=== PATIENT | male | born 1960 | race Caucasian/White ===

== ENCOUNTER 2022-01-02 12:15 | Inpatient (IN) ==
--- NOTE | 2021-12-30 15:50 | Anesthesiology Consultation ---
Date of Service December 30, 2021 Assessment & Plan (1) Encounter for pre-operative examination: COVID screening: Per assessment on 12/26: No known COVID-19 positive contacts or current COVID-19 related symptoms. Travel screen negative. At surgeon discretion if preop Covid testing being done. Chart Review Chart Review: Acceptable Risk for Surgery (pending surgeon-ordered preop CXR) and Patient NOT seen in Pre Admission Testing History Surgery Operation Date: 01/02/22 10:15 Proposed Procedures p L2-L5 Decompression and Fusion, Spinal Cord Monitoring - Vinay Preston, Height/Weight Height: 6 ft 1.5 in Weight: 108.862 kg Allergies Allergy/AdvReac Type Severity Reaction Status Date / Time METHYLATE Allergy Mild Rash Uncoded 12/26/21 10:41 Medications Home Medications Medication Instructions Recorded Confirmed Last Taken Lactobacil.acidophilus-Bifido.animalis 1 cap PO QAM 12/26/21 12/26/21 Unknown 5 billion cell sprinkle capsule (Probiotic) atorvastatin 10 mg tablet 10 mg PO 3XWK 12/26/21 12/26/21 Unknown bupropion HCl 200 mg tablet,12 hr 200 mg PO BID 12/26/21 12/26/21 Unknown sustained-release buspirone 7.5 mg tablet 7.5 mg PO BID 12/26/21 12/26/21 Unknown cholecalciferol (vitamin D3) 25 50 mcg PO QAM 12/26/21 12/26/21 Unknown mcg (1,000 unit) tablet (Vitamin D3) cyanocobalamin (vitamin B-12) 500 1,000 - 1,500 mcg sublingual QAM 12/26/21 12/26/21 Unknown mcg sublingual tablet cyclobenzaprine 10 mg tablet 10 mg PO DAILY PRN Pain 12/26/21 12/26/21 Unknown felodipine 5 mg tablet,extended 5 mg PO QAM 12/26/21 12/26/21 Unknown release 24 hr losartan 50 mg tablet 50 mg PO QAM 12/26/21 12/26/21 Unknown omeprazole 40 mg capsule,delayed 40 mg PO QAM 12/26/21 12/26/21 Unknown release Past Medical History Medical History (Updated 12/30/21 @ 15:49 by Esther Mo) Anxiety and depression Arthritis GERD (gastroesophageal reflux disease) Hyperlipidemia Hypertension Sleep apnea CPAP Past Family History Family History (Updated 12/26/21 @ 10:56 by Michell Hatfield RN) Other No family history of adverse response to anesthesia Past Surgical History Surgical History (Updated 12/26/21 @ 10:56 by Michell Hatfield RN) Fatty tumor REMOVED FROM HIP AREA X 2 REMOVED FROM RT SHOULDER H/O excision of ganglion cyst WRIST H/O hernia repair X 3 H/O lumbar discectomy History of appendectomy History of colonoscopy History of esophagogastroduodenoscopy (EGD) History of repair of rotator cuff RT History of tonsillectomy History of tooth extraction Hx of LASIK Social History Smoking Status: Former smoker tobacco type: cigarettes and smokeless tobacco Do You Dip or Chew Tobacco: No (QUIT 10+ YEARS) Smoking End Date: 10 + YEARS Hx Alcohol Use: Yes Alcohol type: beer alcohol intake frequency: a few times a month substance use type: does not use Lab Results Anesthesia Preop Results Results Anesthesia Widget: WBC 5.21 K/ul (4.8-10.8) 12/03/21 Hgb 14.3 g/dl (14.0-18.0) 12/03/21 Hct 40.8 % (40.1-51.0) 12/03/21 Plt 223 K/uL (130-400) 12/03/21 Na 135 mmol/L (136-145) L 12/03/21 K 3.9 mmol/L (3.5-5.1) 12/03/21 Cl 102 mmol/L (98-107) 12/03/21 CO2 24 mmol/L (21-32) 12/03/21 BUN 9 mg/dl (6-23) 12/03/21 Creat 1.04 mg/dl (0.6-1.4) 12/03/21 Glucose Level 96 mg/dl (70-99(Fasting)) 12/03/21 PT 10.5 Seconds (9.0-12.0) 12/03/21 PTT 29.9 Seconds (21.0-31.0) 12/03/21 INR 1.0 (0.9-1.1) 12/03/21 Urine Color Yellow 12/03/21 Urine Appearance Clear (Clear) 12/03/21 Urine pH 7.0 (4.5-7.5) 12/03/21 Urine Specific [place] 1.008 (1.000-1.030) 12/03/21 Urine Protein Negative (Negative) 12/03/21 Urine Glucose (UA) Negative (Negative) 12/03/21 Urine Ketones Negative (Negative) 12/03/21 Urine Blood Negative (Negative) 12/03/21 Urine Nitrite Negative (Negative) 12/03/21 Urine Bilirubin Negative (Negative) 12/03/21 Urine Urobilinogen Negative (Negative) 12/03/21 Urine Leukocyte Esterase Negative (Negative) 12/03/21 Blood Type O Positive 12/03/21 Antibody Screen NEGATIVE 12/03/21 Testing Electrocardiogram Date: 12/03/21 NSR at 93bpm. LAD.
[~2022-01-02 12:15] MED LIST: ACETAMINOPHEN 500 MG TAB PO SCH; CeleBREX 200 MG CAP PO SCH; GABAPENTIN 600 MG DOSE PO SCH; LR 15ML/HR IV SCH; ceFAZolin 2000MG 2,000 MG/15 ML SYR IV SCH
[2022-01-02] MEDS ORDERED: ROCURONIUM BROMIDE 10 MG/ML 5 ML VIAL IV ONE (15:15)
[2022-01-02] MEDS ORDERED: ONDANSETRON INJ 2 MG/ML 2 ML VIAL ONE (15:15)
[2022-01-02] MEDS ORDERED: DEXAMETHASONE SOD INJ 4 MG/ML VIAL ONE (15:15)
[2022-01-02] MEDS ORDERED: PROPOFOL IV EMULSION 10 MG/ML 20 ML VIAL IV ONE (15:15)
[2022-01-02] MEDS ORDERED: LIDOCAINE 2% MPF LOCAL 5 ML VIAL INFIL ONE (15:15)
[2022-01-02] MEDS ORDERED: fentaNYL citrate 100 MCG/2 ML VIAL ONE (15:36)
[2022-01-02] MEDS ORDERED: MIDAZOLAM HCL 1 MG/ML 2ML VIAL ONE (15:36)
--- NOTE | 2022-01-02 15:45 | History & Physical Bridge Note ---
Date of Service January 02, 2022 History & Physical Bridge Note I have examined the patient, reviewed the History & Physical and in the interval since the performance of the History & Physical I have noted the following changes of clinical significance: no changes noted
--- NOTE | 2022-01-02 15:46 | History & Physical Report ---
Date of Service January 02, 2022 Assessment & Plan (1) Neurogenic claudication due to lumbar spinal stenosis: Plan: L2-L5 decompression and fusion History of Present Illness Chief Complaint: Back and bilateral leg pain Primary Care Provider: NO PCP This is a 61-year-old male who presents with chronic persistent back and bilateral leg pain. Failing since course of nonoperative care is here for surgical invention. Allergies Allergy/AdvReac Type Severity Reaction Status Date / Time METHYLATE Allergy Mild Rash Uncoded 01/02/22 12:36 Home Medications Medication Instructions Recorded Confirmed Type Lactobacil.acidophilus-Bifido.animalis 1 cap PO QAM 12/26/21 01/02/22 History 5 billion cell sprinkle capsule (Probiotic) atorvastatin 10 mg tablet 10 mg PO 3XWK 12/26/21 01/02/22 History bupropion HCl 200 mg tablet,12 hr 200 mg PO BID 12/26/21 01/02/22 History sustained-release buspirone 7.5 mg tablet 7.5 mg PO BID 12/26/21 01/02/22 History cholecalciferol (vitamin D3) 25 50 mcg PO QAM 12/26/21 01/02/22 History mcg (1,000 unit) tablet (Vitamin D3) cyanocobalamin (vitamin B-12) 500 1,000 - 1,500 mcg sublingual QAM 12/26/21 01/02/22 History mcg sublingual tablet cyclobenzaprine 10 mg tablet 10 mg PO DAILY PRN Pain 12/26/21 01/02/22 History felodipine 5 mg tablet,extended 5 mg PO QAM 12/26/21 01/02/22 History release 24 hr losartan 50 mg tablet 50 mg PO QAM 12/26/21 01/02/22 History omeprazole 40 mg capsule,delayed 40 mg PO QAM 12/26/21 01/02/22 History release Past Med/Surg History Medical History (Updated 01/02/22 @ 15:45 by Vinay Preston DO) Anxiety and depression Arthritis GERD (gastroesophageal reflux disease) Hyperlipidemia Hypertension Sleep apnea CPAP Surgical History Fatty tumor REMOVED FROM HIP AREA X 2 REMOVED FROM RT SHOULDER H/O excision of ganglion cyst WRIST H/O hernia repair X 3 H/O lumbar discectomy History of appendectomy History of colonoscopy History of esophagogastroduodenoscopy (EGD) History of repair of rotator cuff RT History of tonsillectomy History of tooth extraction Hx of LASIK Family History (Updated 12/26/21 @ 10:56 by Michell Hatfield RN) Other No family history of adverse response to anesthesia Social History Smoking Status: Former smoker Smoking End Date: 10 + YEARS; Second Hand Exposure: No; Do You Dip or Chew Tobacco: No (QUIT 10+ YEARS); Hx Alcohol Use: Yes Alcohol type: beer Preferred Language: Senegalese [employer] Required: No Beliefs That Will Affect Care: None Current Living Situation: Family Current Living Situation Comment: AND SON Feels Safe at Home: Yes Safety Concerns: Feels Safe At This Time Assistive Devices: CPAP and Glasses Physical Exam Physical Exam: Patient is alert and oriented Heart regular in rhythm Lungs clear Results & Data Results & Data ([facility]) Vital Signs (Past 12 Hours) Vital Signs Temp Pulse Resp BP Pulse Ox O2 Del Method 01/02/22 12:38 37 C 86 18 163/101 H 96 Room Air
[2022-01-02] MEDS ORDERED: LABETALOL HCL IV 5 MG/ML 20ML IV PRN (16:07)
[2022-01-02] MEDS ORDERED: ATROPINE SULFATE 0.1 MG/ML 10ML SYR IV PRN (16:07)
[2022-01-02] MEDS ORDERED: PROMETHAZINE HCL 6.25 MG in SODIUM CHLORIDE 0.9% 50 ML IV PRN (16:07)
[2022-01-02] MEDS ORDERED: fentaNYL citrate 100 MCG/2 ML VIAL IV PRN (16:07)
[2022-01-02] MEDS ORDERED: HYDROmorphone INJ 2 MG/ML SYR/VIAL IV PRN (16:07)
[2022-01-02] MEDS ORDERED: ePHEDrine sulfate 50 MG/ML AMP IV PRN (16:07)
[2022-01-02] MEDS ORDERED: ONDANSETRON INJ 2 MG/ML 2 ML VIAL IV PRN ×2 (16:07→19:58)
[2022-01-02] MEDS ORDERED: ceFAZolin 330 MG/ML 1 GM VIAL ONE (16:19)
[2022-01-02] MEDS ORDERED: BUPIVACAINE/EPINEPHRINE 0.25% 1:200,000 30 ML VIAL ONE (16:19)
[2022-01-02] MEDS ORDERED: HYDROmorphone INJ 2 MG/ML SYR/VIAL ONE (16:42)
[2022-01-02] MEDS ORDERED: KETAMINE 50 MG/5 ML SYRINGE ONE (16:42)
[2022-01-02] MEDS ORDERED: FLOSEAL HEMOSTATIC MATRIX 10ML TOP ONE (17:43)
--- NOTE | 2022-01-02 18:56 | Operative Report ---
Post Operative Report Pre & Post Diagnosis Operation Date: 01/02/22 13:45 Pre-Op Diagnosis: Lumbar spinal stenosis with radiculopathy Post-Op Diagnosis: Same I identified the patient and participated in the time-out.: Yes Procedure Operation Date: 01/02/22 13:45 Actual Procedures #1 revision decompression with bilateral medial facetectomies and foraminotomies L2-L3 L3-L4 L4-5. #2 posterior spinal fusion L2-L5 per #3 placement posterior segmental instrumentation L2-L5 per #4 interbody fusion L4-L5 L5-S1. #5 placement of Spira 15 x 26 mm cage at L4-L5 and 13 x 26 mm cage at L5-S1. #6 placement locally harvested morselized autograft in the posterior gutters. #7 placement of I factor model V toss in the interbody space and posterior lateral gutters. Surgeon Vinay Preston, DO Hogshead Weigher Fredy Reeves Estimated Blood Loss 550 Findings See Below The patient is 6 foot 1 inches tall weighing over 111 kg with a BMI in excess of 32. Patient's body habitus did contribute to significant technical difficulty required deepest retractors and longer instruments in order to perform his procedure. This had at least 50% increased to the operative time. Specimens None Indications This is a 61-year-old male that presents with above-mentioned diagnosis after failed extensive course of nonoperative care is here for surgical invention. Description of Procedure Patient was met with identified informed consent obtained. Patient was then taken to the operative suite underwent intubation placed in the prone position the Amilcar table atop the Mehran frame. All bony prominences were well-padded eyes inspected to ensure no external pressure placed upon the. This point lumbar spine was prepped and draped in a normal sterile fashion. Sharp dissection with the assistance of Bovie cautery was performed down to and exposing the remaining lamina transverse processes of L2 L3-L4-L5 bilaterally. From a caudal cephalad fashion revision complete laminectomy L4 L3 and L2 was performed including bilateral medial facetectomies and foraminotomies addressing severe spinal stenosis and disc herniation at the L3-L4 level. After complete decompression pedicle screws were placed in L2-L3 L4-5 bilaterally with assistance of fluoroscopy and appropriately sized chris placed. By way of a transfemoral approach on the right complete discectomy of L4-5 was performed endplates curetted to subcortical bleeding bone and a 13 x 26 mm spiral cage with I factor tapped in position. Then proceeded to L3-L4 and again by way of a transforaminal approach and right complete discectomy performed endplates curetted to subcortically bone and a 15 x 26 mm spiral cage with I factor tapped in position. The rods were then compressed locked in final position bilaterally. The transverse processes of L2-L3 L4-5 burred to subcortical bleeding bone. I factor combined with the test and locally harvested morselized autograft was placed in the posterior gutters. 15 round JENNIFER drain inserted. The incision was then closed with 1 Vicryl in the fascia 2-0 Vicryl subcutaneously and 4 Monocryl for final skin closure. Steri-Strip sterile dressings placed. Patient waken taken to PACU in stable condition. Please note spinal cord monitoring was utilized at the procedure no changes noted. Lastly Fredy Reeves was present out the entire surgery involved the patient positioning complex portions of the surgery and final skin closure. I attest to the content of the Intraoperative Record and any orders documented therein. Any exceptions are noted below.
--- NOTE | 2022-01-02 19:00 | Fluoroscopy Report ---
FL lumbar spine 2-3V CLINICAL HISTORY: L2-L5 DECOMPRESSION AND FUSION COMPARISON STUDY: None. FLUOROSCOPY TIME: 28 seconds. FLUOROSCOPIC IMAGES: 2 FINDINGS: Fluoroscopy was provided during L3-L4 and L4-L5 discectomies with interbody spacer placemen t. Posterior decompression is noted. There are bilateral pedicle screws at the L2, L3, L4 and L5 leve ls with interconnecting rods. IMPRESSION: Fluoroscopy provided during L2-L5 decompression and fusion. ACT 112: Negative or not required by law. Electronically signed by: Edgar Taylor M.D. 01/02/2022 6:59 PM
--- NOTE | 2022-01-02 19:30 | Anesthesiology Progress Note ---
Date of Service January 02, 2022 Anesthesia Post Procedure Vital Signs Vital Signs: Temp Pulse Pulse Resp BP Pulse Ox O2 Del Method 01/02/22 19:25 91 H 12 126/83 91 Nasal Cannula 01/02/22 19:15 87 13 113/89 94 Oxymask 01/02/22 19:08 36.4 C L 88 12 127/81 94 Oxymask 01/02/22 12:38 37 C 86 18 163/101 H 96 Room Air O2 Flow Rate 01/02/22 19:25 2 01/02/22 19:15 4 01/02/22 19:08 6 01/02/22 12:38 Transfer of Care Handoff Completed per policy Notes Mental Status: alert / awake / arousable and participated in evaluation Patient Amnestic to Procedure: Yes Nausea / Vomiting: adequately controlled Pain: adequately controlled Airway Patency, RR, SpO2: stable & adequate BP & HR: stable & adequate Hydration State: stable & adequate Anesthetic Complications: no major complications apparent and Pt Satisfied with anesthetic care
[2022-01-02] MEDS ORDERED: LORazepam 0.5 MG in SYRINGE 0 ML IV PRN (19:58)
[2022-01-02] MEDS ORDERED: bisacodyL 10 MG SUPP PR PRN (19:58)
[2022-01-02] MEDS ORDERED: traMADol HCL 50 MG TABLET PO PRN (19:58)
[2022-01-02] MEDS ORDERED: diphenhydrAMINE Capsule 25 MG CAP PO PRN (19:58)
[2022-01-02] MEDS ORDERED: hydrOXYzine HCl 25 MG TAB PO PRN (19:58)
[2022-01-02] MEDS ORDERED: PROMETHAZINE HCL 12.5 MG in SODIUM CHLORIDE 0.9% 50 ML IV PRN (19:58)
[2022-01-02] MEDS ORDERED: SOD PHOSPHATE/SOD BIPHOSPHATE ENEMA 132 ML BTL PR PRN (19:58)
[2022-01-02] MEDS ORDERED: METOCLOPRAMIDE HCL INJ 5 MG/ML 2 ML VIAL IV PRN (19:58)
[2022-01-02] MEDS ORDERED: ACETAMINOPHEN 1,000 MG/100 ML VIAL IV PRN (19:58)
[2022-01-02] MEDS ORDERED: MAGNESIUM HYDROXIDE SUSP 30 ML UDC PO PRN (19:58)
[2022-01-02] MEDS ORDERED: HYDROmorphone INJ 0.5 MG/0.5 ML SYR IV PRN (19:58)
[2022-01-02] MEDS ORDERED: ACETAMINOPHEN 500 MG TAB PO PRN (19:58)
[2022-01-02] MEDS ORDERED: HYDROmorphone INJ 1 MG/ML SYRINGE IV PRN (19:58)
[2022-01-02] MEDS ORDERED: NALOXONE HCL 0.4 MG/1 ML VIAL/CARP IV PRN (19:58)
[2022-01-02] MEDS ORDERED: LORazepam 0.5 MG TAB PO PRN (19:58)
[2022-01-02] MEDS ORDERED: ONDANSETRON 4 MG OD TAB PO PRN (19:58)
[2022-01-02] MEDS ORDERED: FAMOTIDINE 20 MG TAB PO PRN (19:58)
[2022-01-02] MEDS ORDERED: ALUMINUM/MAGNESIUM SUSP 30 ML UDC PO PRN (19:58)
--- NOTE | 2022-01-02 20:36 | Hospitalist Consultation ---
Date of Consultation January 02, 2022 Assessment & Plan (1) Neurogenic claudication due to lumbar spinal stenosis: Final Assessment and Recommendations as follows : LSS sp surgery, patient comfortable hypertension, stable hyperlipidemia on statin Rx anxiety/mood disorder, stable on regimen MARILYN on CPAP Past tobacco abuse Hold parameters for sedation confusion or neuropsychotropic medications DVT prophylaxis. SCDs as per postop surgery orders Thank you very much for this consultation. Dr. Whitley will follow patient's progress. Text document was generated using [email or web address] voice recognition software. It may contain grammatical or spelling errors. Kindly contact undersigned for clarification of any documentation item in question. History of Present Illness Reason for Consultation: Medical management Requesting Physician: Dr. Preston Attending Physician: Vinay Preston DO History of Present Illness PCP : Irene River PA-C History obtained from patient and records. Medical history significant for hypertension, hyperlipidemia, anxiety/mood disorder, chronic back pain status post surgery, MARILYN on CPAP, and past tobacco abuse. Patient underwent elective lumbar decompression surgery for L SS today. Currently comfortable but tired. Patient denies chest pain, SOB. Medical History as above Surgical History : Subcutaneous tumor removal, ganglion cyst removal, hernia surgery, back surgeries, appendectomy, shoulder surgery, tonsillectomy, dental surgery, LASIK eye surgery Family History : no HTN, no DM, no strokes, no heart disease, no blood clots as per patient Personal/Social history : Past tobacco abuse, occasional EtOH intake, [employer] worker Allergies Allergy/AdvReac Type Severity Reaction Status Date / Time METHYLATE Allergy Mild Rash Uncoded 01/02/22 12:36 Home Medications Medication Instructions Recorded Confirmed Type Lactobacil.acidophilus-Bifido.animalis 1 cap PO QAM 12/26/21 01/02/22 History 5 billion cell sprinkle capsule (Probiotic) atorvastatin 10 mg tablet 10 mg PO 3XWK 12/26/21 01/02/22 History bupropion HCl 200 mg tablet,12 hr 200 mg PO BID 12/26/21 01/02/22 History sustained-release buspirone 7.5 mg tablet 7.5 mg PO BID 12/26/21 01/02/22 History cholecalciferol (vitamin D3) 25 50 mcg PO QAM 12/26/21 01/02/22 History mcg (1,000 unit) tablet (Vitamin D3) cyanocobalamin (vitamin B-12) 500 1,000 - 1,500 mcg sublingual QAM 12/26/21 01/02/22 History mcg sublingual tablet cyclobenzaprine 10 mg tablet 10 mg PO DAILY PRN Pain 12/26/21 01/02/22 History felodipine 5 mg tablet,extended 5 mg PO QAM 12/26/21 01/02/22 History release 24 hr losartan 50 mg tablet 50 mg PO QAM 12/26/21 01/02/22 History omeprazole 40 mg capsule,delayed 40 mg PO QAM 12/26/21 01/02/22 History release Patient History Medical History (Updated 01/02/22 @ 15:45 by Vinay Preston DO) Anxiety and depression Arthritis GERD (gastroesophageal reflux disease) Hyperlipidemia Hypertension Sleep apnea CPAP Surgical History Fatty tumor REMOVED FROM HIP AREA X 2 REMOVED FROM RT SHOULDER H/O excision of ganglion cyst WRIST H/O hernia repair X 3 H/O lumbar discectomy History of appendectomy History of colonoscopy History of esophagogastroduodenoscopy (EGD) History of repair of rotator cuff RT History of tonsillectomy History of tooth extraction Hx of LASIK Family History (Updated 12/26/21 @ 10:56 by Michell Hatfield RN) Other No family history of adverse response to anesthesia Social History Smoking Status: Former smoker Smoking End Date: 10 + YEARS; Second Hand Exposure: No; Do You Dip or Chew Tobacco: No (QUIT 10+ YEARS); Hx Alcohol Use: Yes Alcohol type: beer Preferred Language: Moldovan Correspondence Section Supervisor Required: No Beliefs That Will Affect Care: None Current Living Situation: Family Current Living Situation Comment: AND SON Feels Safe at Home: Yes Safety Concerns: Feels Safe At This Time Assistive Devices: CPAP and Glasses Review of Systems Review of Systems: As per HPI, all other systems reviewed and negative Physical Exam Physical Exam: GENERAL: Comfortable, obese, slightly drowsy, no respiratory distress SKIN: Normal color, warm HEENT: Alopecia, [place] palpebral conjunctivae, no ptosis, dry buccal mucosa NECK : Supple, short neck, no tenderness CHEST : Decreased breath sounds, no tenderness HEART : RRR, no obvious murmurs ABDOMEN: Some distention, nontender EXTREMITIES : No LE swelling/tenderness, no other conspicuous deformities noted NEUROLOGIC : Coherent but slightly drowsy, no facial asymmetry, gait and stance not assessed Results & Data Results & Data ([facility]) Vital Signs (Past 12 Hours) Vital Signs Temp Pulse Pulse Resp BP Pulse Ox O2 Del Method 01/02/22 19:50 36.8 C 92 H 18 123/83 93 Nasal Cannula 01/02/22 19:35 36.3 C L 89 14 106/88 92 Nasal Cannula 01/02/22 19:25 91 H 12 126/83 91 Nasal Cannula 01/02/22 19:15 87 13 113/89 94 Oxymask 01/02/22 19:08 36.4 C L 88 12 127/81 94 Oxymask 01/02/22 12:38 37 C 86 18 163/101 H 96 Room Air O2 Flow Rate 01/02/22 19:50 4 01/02/22 19:35 4 01/02/22 19:25 2 01/02/22 19:15 4 01/02/22 19:08 6 01/02/22 12:38 Laboratory Results Laboratory Results SARS-CoV-2, RNA, NAAT NEGATIVE (NEGATIVE) 01/02/22 Unknown Blood Type O Positive 01/02/22 12:28 Antibody Screen NEGATIVE 01/02/22 12:28 Crossmatch See Detail 01/02/22 12:28 Impressions Lumbar Spine X-Ray 01/02/22 13:45 FL lumbar spine 2-3V CLINICAL HISTORY: L2-L5 DECOMPRESSION AND FUSION COMPARISON STUDY: None. FLUOROSCOPY TIME: 28 seconds. FLUOROSCOPIC IMAGES: 2 FINDINGS: Fluoroscopy was provided during L3-L4 and L4-L5 discectomies with interbody spacer placement. Posterior decompression is noted. There are bilateral pedicle screws at the L2, L3, L4 and L5 levels with interconnecting rods. IMPRESSION: Fluoroscopy provided during L2-L5 decompression and fusion. ACT 112: Negative or not required by law. Electronically signed by: Edgar Taylor M.D. 01/02/2022 6:59 PM
[2022-01-02] MEDS: buPROPion SR 100 MG TABCR PO SCH (20:59)
[2022-01-02] MEDS: DOCUSATE SODIUM/SENNA 50/8.6MG TAB PO SCH (20:59)
[2022-01-02] MEDS: busPIRone 7.5 MG TAB PO SCH (20:59)
[2022-01-02] MEDS: LACTATED RINGER'S 1,000 ML IV SCH (21:00)
[2022-01-03] MEDS: ceFAZolin 2000MG 2,000 MG/15 ML SYR IV SCH ×2 (00:01→09:18)
[2022-01-03] MEDS: LACTATED RINGER'S 1,000 ML IV SCH ×2 (03:36→09:28)
[2022-01-03] MEDS ORDERED: POLYETHYLENE (MIRALAX) 17 GM PACK PO SCH (06:00)
[2022-01-03 07:36] LABS: Basophils # (auto) 0.01 K/uL (0-0.2); Basophils % (auto) 0.1 %; Hematocrit (blood only) 35.2 % (40.1-51.0); Hemoglobin 12.1 g/dl (14.0-18.0); Immature Granulocytes # (auto) 0.04 K/uL (0.00-0.02); Immature Granulocytes % (auto) 0.4 %; Lymphocytes # (auto) 0.38 K/uL (1.2-3.4); Lymphocytes % (auto) 4.1 %; Mean Corpuscular Hemoglobin 32.3 pg (25.0-34.0); Mean Corpuscular Hgb Conc 34.4 g/dL (32.0-36.0); Mean Corpuscular Volume 93.9 fL (80.0-100.0); Mean Platelet Volume 12.2 fL (9.4-12.4); Monocytes # (auto) 0.64 K/uL (0.24-0.82); Neutrophils # (auto) 8.09 K/uL (1.4-6.5); Neutrophils % (auto) 88.4 %; Platelet Count 176 K/uL (130-400); RDW Coefficient of Variation 12.8 % (11.5-14.5); RDW Standard Deviation 44.2 fL (36.4-46.3); Red Blood Count 3.75 M/uL (4.63-6.08); White Blood Count 9.16 K/ul (4.8-10.8)
[2022-01-03 08:28] LABS: BUN Creatinine Ratio 14.3 (10-20); Calcium 8.7 mg/dl (8.5-10.1); Est GFR (African American) 105.8 ml/min; Est GFR (Non-African American) 91.3 ml/min; Potassium 4.5 mmol/L (3.5-5.1)
--- NOTE | 2022-01-03 09:00 | Orthopedic Progress Note ---
Date of Service January 03, 2022 Assessment & Plan (1) Neurogenic claudication due to lumbar spinal stenosis: Plan: This time initiate physical therapy monitor his JENNIFER output hopefully discharge home in the next few days. Admission and Anticipated Discharge Date Admission Date: January 02, 2022 Subjective Patient back pain is controlled leg symptoms improved Physical Exam Physical Exam: On exam patient is sitting up in bed. Is comfortable. Is good strength testing. Results & Data ([facility]) Vital Signs (Past 12 Hours) Vital Signs Temp Pulse Resp BP BP Pulse Ox O2 Del Method 01/03/22 08:00 Nasal Cannula 01/03/22 07:37 36.7 C 86 19 157/96 H 98 Nasal Cannula 01/03/22 02:22 36.6 C 83 18 135/86 94 Nasal Cannula 01/02/22 23:18 36.3 C L 91 H 18 125/79 95 Nasal Cannula 01/02/22 21:20 36.2 C L 90 16 112/75 95 Nasal Cannula O2 Flow Rate 01/03/22 08:00 2 01/03/22 07:37 4 01/03/22 02:22 4 01/02/22 23:18 4 01/02/22 21:20 4
[2022-01-03] MEDS: busPIRone 7.5 MG TAB PO SCH ×2 (09:12→22:04)
[2022-01-03] MEDS: dexAMETHasone 6 MG in SYRINGE 0 ML IV SCH (09:12)
[2022-01-03] MEDS: buPROPion SR 100 MG TABCR PO SCH ×2 (09:12→22:03)
[2022-01-03] MEDS: LOSARTAN POTASSIUM 50 MG TAB PO SCH (09:13)
[2022-01-03] MEDS: PANTOprazole 40 MG TAB PO SCH (09:13)
[2022-01-03] MEDS: FELODIPINE 5 MG TABCR PO SCH (09:13)
[2022-01-03] MEDS: ADVANCED PROBIOTIC 1250 MG CAPSULE PO SCH (09:13)
[2022-01-03] MEDS: CHOLECALCIFEROL 1,000 UNITS 25 MCG TAB PO SCH (09:13)
[2022-01-03] MEDS: oxyCODONE HCL IR 5 MG TAB (IMMEDIATE RELEASE) PO PRN ×3 (09:14→23:08)
[2022-01-03] MEDS ORDERED: SODIUM CHLORIDE 0.9% 1000ML 1,000 ML IV ONE (11:31)
--- NOTE | 2022-01-03 11:38 | Hospitalist Progress Note ---
Date of Service January 03, 2022 Assessment & Plan (1) Neurogenic claudication due to lumbar spinal stenosis: Plan: LSS sp surgery -- Lightheaded with ambulation today Blood pressure systolic 100s after checking -- Hold losartan, felodipine -- 1 L IV fluid bolus given NSS at 80 cc/h also ordered --Hemoglobin 14--> 12 Monitor, transfuse if less than 7 --Tylenol 1 g every 8 hours scheduled to help with pain control Hypertension -- Management per above hyperlipidemia on statin anxiety/mood disorder, stable on regimen MARILYN on CPAP Past tobacco abuse Hold parameters for sedation confusion or neuropsychotropic medications DVT prophylaxis. SCDs as per postop surgery orders Admission and Anticipated Discharge Date Admission Date: January 02, 2022 Subjective Follow-up for surgery, etc. Seen resting in bed, on 2 L of oxygen Not in distress, but appears tired, reports significant back pain Improving with pain medication [place] dizzy while standing and walking to the bathroom today no chest pain, dyspnea, palpitations, dizziness No other symptoms Review of Systems Review of Systems: all noted and negative except for above Physical Exam Physical Exam: General- oriented x 3, not in distress, speaks in sentences with no effort or accessory muscle use Eyes- anicteric Neck- no JVD Lungs- clear breath sounds bilaterally, no rales/wheezes Heart- normal rate, regular rhythm; no murmurs Abdomen- normal bowel sounds, nondistended, soft, nontender Extremities- no pretibial edema, no calf tenderness Neuro- alert, oriented x 3; no gross focal neurologic deficits Skin- warm & dry Results & Data Results & Data ([facility]) Vital Signs (Past 12 Hours) Vital Signs Temp Pulse Resp BP BP Pulse Ox O2 Del Method 01/03/22 08:00 Nasal Cannula 01/03/22 07:37 36.7 C 86 19 157/96 H 98 Nasal Cannula 01/03/22 02:22 36.6 C 83 18 135/86 94 Nasal Cannula O2 Flow Rate 01/03/22 08:00 2 01/03/22 07:37 4 01/03/22 02:22 4 all noted and reviewed including below
[2022-01-03] MEDS: ACETAMINOPHEN 500 MG TAB PO SCH ×2 (12:00→22:03)
[2022-01-03] MEDS: SODIUM CHLORIDE 0.9% 1000ML 1,000 ML IV SCH (12:41)
[2022-01-03] MEDS: DOCUSATE SODIUM/SENNA 50/8.6MG TAB PO SCH (22:04)
[2022-01-04] MEDS: SODIUM CHLORIDE 0.9% 1000ML 1,000 ML IV SCH ×2 (01:43→13:20)
[2022-01-04] MEDS: ACETAMINOPHEN 500 MG TAB PO SCH ×3 (05:23→21:17)
[2022-01-04] MEDS: busPIRone 7.5 MG TAB PO SCH ×2 (08:33→19:57)
[2022-01-04] MEDS: dexAMETHasone 6 MG in SYRINGE 0 ML IV SCH (08:33)
[2022-01-04] MEDS: PANTOprazole 40 MG TAB PO SCH (08:33)
[2022-01-04] MEDS: buPROPion SR 100 MG TABCR PO SCH ×2 (08:33→19:57)
[2022-01-04] MEDS: CHOLECALCIFEROL 1,000 UNITS 25 MCG TAB PO SCH (08:34)
[2022-01-04] MEDS: ADVANCED PROBIOTIC 1250 MG CAPSULE PO SCH (08:34)
[2022-01-04 09:46] LABS: Basophils # (auto) 0.02 K/uL (0-0.2); Basophils % (auto) 0.2 %; Eosinophils # (auto) 0.07 K/uL (0-0.50); Eosinophils % (auto) 0.8 %; Hematocrit (blood only) 34.8 % (40.1-51.0); Hemoglobin 11.9 g/dl (14.0-18.0); Immature Granulocytes # (auto) 0.04 K/uL (0.00-0.02); Immature Granulocytes % (auto) 0.5 %; Lymphocytes # (auto) 0.92 K/uL (1.2-3.4); Lymphocytes % (auto) 11.1 %; Mean Corpuscular Hemoglobin 32.2 pg (25.0-34.0); Mean Corpuscular Hgb Conc 34.2 g/dL (32.0-36.0); Mean Corpuscular Volume 94.3 fL (80.0-100.0); Mean Platelet Volume 11.9 fL (9.4-12.4); Monocytes # (auto) 0.99 K/uL (0.24-0.82); Monocytes % (auto) 11.9 %; Neutrophils # (auto) 6.27 K/uL (1.4-6.5); Neutrophils % (auto) 75.5 %; Platelet Count 179 K/uL (130-400); RDW Coefficient of Variation 12.8 % (11.5-14.5); RDW Standard Deviation 44.5 fL (36.4-46.3); Red Blood Count 3.69 M/uL (4.63-6.08); White Blood Count 8.31 K/ul (4.8-10.8)
--- NOTE | 2022-01-04 09:54 | Orthopedic Progress Note ---
Date of Service January 04, 2022 Assessment & Plan (1) Neurogenic claudication due to lumbar spinal stenosis: Plan: Today we will be continue with physical therapy ambulate the halls advance his bowel regiment. Hopefully discharge tomorrow. Admission and Anticipated Discharge Date Admission Date: January 02, 2022 Subjective Back pain is controlled leg pain improved Physical Exam Physical Exam: Patient is in the chair at bedside. Skin strength testing. Was comfortable. Results & Data ([facility]) Vital Signs (Past 12 Hours) Vital Signs Temp Pulse Resp BP BP Pulse Ox O2 Del Method 01/04/22 07:00 36.3 C L 82 16 136/83 95 Nasal Cannula 01/04/22 02:38 36.8 C 93 H 19 125/89 92 Nasal Cannula O2 Flow Rate 01/04/22 07:00 2 01/04/22 02:38 2
[2022-01-04 10:09] LABS: BUN Creatinine Ratio 17.2 (10-20); Calcium 8.7 mg/dl (8.5-10.1); Creatinine Clr Calc Pharmacy 119.2 ml/min; Est GFR (African American) 108.7 ml/min; Est GFR (Non-African American) 93.8 ml/min; Potassium 3.8 mmol/L (3.5-5.1)
--- NOTE | 2022-01-04 12:34 | Hospitalist Progress Note ---
Date of Service January 04, 2022 Assessment & Plan (1) Neurogenic claudication due to lumbar spinal stenosis: Plan: LSS sp surgery -- Dizziness resolved, potentially improved Blood pressure systolic 100s after checking -- Resume losartan, hold felodipine, trend blood pressure today -- 1 L IV fluid bolus given NSS at 80 cc/h also ordered --Hemoglobin 14--> 12, today 11.9 Monitor, transfuse if less than 7 --Tylenol 1 g every 8 hours Hypertension -- Management per above hyperlipidemia on statin anxiety/mood disorder, stable on regimen MARILYN on CPAP Past tobacco abuse Hold parameters for sedation confusion or neuropsychotropic medications DVT prophylaxis. SCDs as per postop surgery orders Admission and Anticipated Discharge Date Admission Date: January 02, 2022 Subjective Follow-up for status post back surgery, etc. Seen sitting up in bedside chair, comfortable, having his breakfast Off oxygen supplement States he feels improved compared to yesterday, but still having significant back pain Able to ambulate to the bathroom this morning with no dizziness, presyncope Denies shortness of breath, cough, fevers or chills No chest pain, palpitations Appetite is good Review of Systems Review of Systems: all noted and negative except for above Physical Exam Physical Exam: General- oriented x 3, not in distress, speaks in sentences with no effort or accessory muscle use Eyes- anicteric Neck- no JVD Lungs- clear breath sounds bilaterally, no crackles or wheezing Heart- normal rate, regular rhythm; no murmurs Abdomen- normal bowel sounds, nondistended, soft, no tenderness Extremities- no pretibial edema, no calf tenderness Neuro- alert, oriented x 3; no gross focal neurologic deficits Skin- warm & dry Results & Data Results & [facility] ([facility]) Vital Signs (Past 12 Hours) Vital Signs Temp Pulse Resp BP BP Pulse Ox O2 Del Method 01/04/22 10:28 93 01/04/22 07:00 36.3 C L 82 16 136/83 95 Nasal Cannula 01/04/22 02:38 36.8 C 93 H 19 125/89 92 Nasal Cannula O2 Flow Rate 01/04/22 10:28 01/04/22 07:00 2 01/04/22 02:38 2 all noted and reviewed including below
[2022-01-04] MEDS: oxyCODONE HCL IR 5 MG TAB (IMMEDIATE RELEASE) PO PRN (13:22)
[2022-01-04] MEDS: LOSARTAN POTASSIUM 50 MG TAB PO SCH (15:20)
[2022-01-04] MEDS: DOCUSATE SODIUM/SENNA 50/8.6MG TAB PO SCH (19:58)
[2022-01-05] MEDS: ACETAMINOPHEN 500 MG TAB PO SCH ×2 (06:24→14:52)
[2022-01-05] MEDS: busPIRone 7.5 MG TAB PO SCH (08:06)
[2022-01-05] MEDS: buPROPion SR 100 MG TABCR PO SCH (08:06)
[2022-01-05] MEDS: CHOLECALCIFEROL 1,000 UNITS 25 MCG TAB PO SCH (08:06)
[2022-01-05] MEDS: dexAMETHasone 6 MG in SYRINGE 0 ML IV SCH (08:06)
[2022-01-05] MEDS: ADVANCED PROBIOTIC 1250 MG CAPSULE PO SCH (08:06)
[2022-01-05] MEDS: PANTOprazole 40 MG TAB PO SCH (08:06)
[2022-01-05] MEDS: FELODIPINE 5 MG TABCR PO SCH (08:37)
[2022-01-05] MEDS: LOSARTAN POTASSIUM 50 MG TAB PO SCH (08:37)
[2022-01-05] MEDS ORDERED: ATORVASTATIN 10 MG TAB PO SCH (09:00)
--- NOTE | 2022-01-05 11:07 | Discharge Summary ---
Date of Service January 05, 2022 Admission HPI Per Admitting Provider This is a 61-year-old male who presents with chronic persistent back and bilateral leg pain. Failing since course of nonoperative care is here for surgical invention. Principal Diagnosis Lumbar spinal stenosis with neurogenic claudication Discharge Data Allergies Allergy/AdvReac Type Severity Reaction Status Date / Time METHYLATE Allergy Mild Rash Uncoded 01/02/22 12:36 Consultations 01/02/22 19:58 Consult Hospitalist Routine Procedures Performed Operation Date: 01/02/22 13:45 Actual Procedures p L2-L5 Decompression and Fusion, Spinal Cord Monitoring(Not Applicable) - Vinay Preston DO Ordered Studies 01/02/22 13:45 FL lumbar spine 2-3V Routine Hospital Course (1) Neurogenic claudication due to lumbar spinal stenosis: Patient with multilevel lumbar decompression fusion tolerated this well was taken to orthopedic for postoperative. Postop day 1 is up and ambulating progress postop day #2 postop day #3 JENNIFER drain decreased probably. Pain well controlled. Excellent strength testing. Separately discharged home. Discharge orders instructions from the chart for further review. Total Time Total Time Spent Total Time Spent (In Minutes): 20 minutes Discharge Plan Discharge Items Patient Disposition: Home - Self-Care Reason For Visit: Spinal Stenosis, Lumbar Region Without Neurogenic Discharge Diagnosis: Lumbar spinal stenosis with radiculopathy Activity: As commented below Non-emergency contact: Primary Care Provider Call non-emergency contact if: you have any medication questions Follow-up/Referrals: PCP,NO [Physician] - Diet: Regular Addtl Attending Provider Instructions: ACTIVITY RECOMMENDATIONS: SELF CARE INSTRUCTIONS AFTER THORACIC/LUMBAR FUSIONS 1. You may walk to your tolerance. It is good exercise for your legs and back. Expect some back and intermittent leg aches and pains. 2. You may perform "counter-top" level activities (make a sandwich, hudson with a project, etc.). 3. No bending or lifting of more than 10 pounds or back twisting of any nature (roll like a log when turning in bed). 4. You may ride in a car for 20-30 minutes at a time. No driving until after your first visit with your doctor. 5. Frequent changes of position and restricting sitting to 30 minutes at a time will help limit the amount of back spasms and stiffness you may experience. 6. You may discontinue the use of ambulatory aids (cane, crutches, etc.) once your strength and confidence allow. 7. You may physical therapy assistant instructor the shower and let water strike your incision when you arrive home at least once daily. Do not take a tub bath, sit in a hot tub or go into a swimming pool until after your first recheck in the office. SPECIAL CARE INSTRUCTIONS: VERY IMPORTANT TO READ AND REVIEW A. Your surgical incision has been closed with a cosmetic suture under the skin that will dissolve in about 6 weeks. In 14 days, you can use a pair of clean scissors and cut the suture that is left outside of the skin at the ends of your incision. 1. The small skin tapes can be removed 7 days after surgery if they have not fallen off by that point. 2. You may keep the wound open to air as much as possible to promote healing after post-op day number 5 unless told otherwise by your doctor. 3. If you think the wound looks like it is becoming infected (redness or worsening drainage) and/or you are experiencing fever, chill or worsening back pain and muscle spasms, contact the office so that we may evaluate you as soon as possible. B. Complications are uncommon, but please contact us if you have any signs or symptoms of: 1. wound infection (fever higher than 102.5 degrees F, redness, separation of wound, drainage, or increasing pain from the incision) 2. blood clots in legs (pain, swelling, redness and warmth in legs) 3. urinary tract infection (fever higher than 102.5 degrees F, burning upon urination or increased frequency of urination) 4. nerve problems (inability to walk on your toes or heels, numbness, loss of bowel or bladder control) 5. any other symptoms that concern you C. Please call the office at if you have any concerns or questions about your operation or recovery. D. No smoking! Smoking drastically decreases the chance of a solid fusion. E. Do not take any anti-inflammatory medications (Indocin, Advil, Motrin, Aspirin, Naprosyn, etc.) as these may inhibit the chance of a solid fusion. Tylenol is okay to take for pain. MANAGING PAIN AFTER SPINAL SURGERY 1. Narcotic medication is intended for short-term use and will be provided for surgical pain. Surgical pain usually lasts for a period of 4-6 weeks. Narcotic medication includes Percocet, Vicodin, Darvocet, Tylenol #3 or Lortab. 2. Longer-term pain is more appropriately treated with non-narcotic medication such as Tylenol ES. 3. Muscle spasm is not appropriately treated with narcotics. Muscle relaxers such as Soma, Flexeril or Skelaxin can be used along with Tylenol ES. 4. Remember that we all live with some "aches and pains". This is not unusual or uncommon after an injury or as we get older. a. Back pain is expected and may include muscle spasms for 4 to 6 weeks after surgery. The pain should gradually improve. If the pain worsens for no apparent reason, please contact the office. b. Intermittent leg pain may also be experienced and should not be concerned about unless it worsens for no apparent reason. If so, please contact the office. 5. We will provide appropriate medication within the normal guidelines of their prescribed use. We will also be very cautious and aware of potential abuse and extended duration of patients' medication needs. a. Pain medications are for your comfort and to assist with sleep and rest so that the tissue can heal. They are not provided in order to return to normal activity and should not be used through the day. To do so or worsening pain at night can result from ongoing tissue damage and development of tolerance to the prescribed medicine. 6. Please allow 2-3 days to process refills. Prescriptions will not be mailed but must be picked up at the office. FOLLOW UP VISIT: Keep your scheduled follow-up appointment. Any questions, please call the office at . Pending Studies at Discharge: No Stand-Alone Forms: My [facility] [employer], Smoking Cessation Medications and DC Order Prescriptions: New tramadol 50 mg tablet 50 mg PO Q6H PRN (Reason: pain, moderate) Qty: 30 0RF oxycodone 5 mg tablet 5 mg PO Q6H PRN (Reason: pain, severe) Qty: 30 0RF Continued losartan 50 mg Tablet 50 mg PO QAM cyclobenzaprine 10 mg Tablet 10 mg PO DAILY PRN (Reason: Pain) atorvastatin 10 mg Tablet 10 mg PO 3XWK felodipine 5 mg Tablet Extended Release 24 Hr 5 mg PO QAM omeprazole 40 mg Capsule,Delayed Release(Dr/Ec) 40 mg PO QAM buspirone 7.5 mg Tablet 7.5 mg PO BID bupropion HCl 200 mg Tablet Sustained-Release 12 Hr 200 mg PO BID cholecalciferol (vitamin D3) [Vitamin D3] 25 mcg (1,000 unit) Tablet 50 mcg PO QAM cyanocobalamin (vitamin B-12) 500 mcg Tablet, Sublingual 1,000 - 1,500 mcg SUBLINGUAL QAM Probiotic 5 billion cell Capsule, Sprinkle 1 cap PO QAM Discharge Orders: Discharge Order (Routine); Ordered 01/05/22 Ordered By: Vinay Preston Admission Data Admit Date/Time: 01/02/22 18:59 Attending Provider: Vinay Preston Admit Provider: Vinay Preston Primary Care Provider: Irene River Other Providers: Karen Reese ; Jarett Whitley
--- NOTE | 2022-01-05 17:30 | Hospitalist Progress Note ---
Date of Service January 05, 2022 Assessment & Plan (1) Neurogenic claudication due to lumbar spinal stenosis: Plan: LSS sp surgery -- Stable overall --Hemoglobin 14--> 12, 11.9 Asymptomatic -- Blood pressure stable overall Hypertension -- Continue usual losartan and amlodipine upon discharge hyperlipidemia on statin anxiety/mood disorder, stable on regimen MARILYN on CPAP Past tobacco abuse Admission and Anticipated Discharge Date Admission Date: January 02, 2022 Subjective Follow-up for back surgery, etc. Seen sitting up in bed, comfortable, not in distress States he feels better today overall Less back pain no chest pain, dyspnea, palpitations, dizziness No abdominal pain, nausea Ambulating with no problems States he agreeable for for discharge today by Dr. Preston Review of Systems Review of Systems: all noted and negative except for above Physical Exam Physical Exam: General- oriented x 3, not in distress, speaks in sentences with no effort or accessory muscle use Eyes- anicteric Neck- no JVD Lungs- clear breath sounds bilaterally, no rales/wheezes Heart- normal rate, regular rhythm; no murmurs Abdomen- normal bowel sounds, nondistended, soft, nontender Back-dressing in place, no bleeding or discharge Extremities- no pretibial edema, no calf tenderness Neuro- alert, oriented x 3; no gross focal neurologic deficits Skin- warm & dry Results & Data Results & Data ([facility]) Vital Signs (Past 12 Hours) Vital Signs Temp Pulse Pulse Resp BP BP Pulse Ox 01/05/22 11:45 36.7 C 89 90 16 130/90 154/109 H 94 01/05/22 07:25 36.7 C 90 16 154/109 H 94 O2 Del Method 01/05/22 11:45 01/05/22 07:25 Room Air all noted and reviewed including below
== END 2022-01-05 16:44 | disposition home or self-care (01) | DRG 455 ==
LOC: ASU 12:15 → 3N 18:59